=== PATIENT | male | born 1955 | race American Indian/Alaskan Native ===

== ENCOUNTER 2021-01-11 17:13 | Emergency (ER) | payer MEDICARE, OTHER ==
[2021-01-11 17:25] VITALS: BP 149/78
[2021-01-11] MEDS ORDERED: BUFFERED LIDOCAINE 10 ML SYRINGE SUBQ STA (17:25)
--- NOTE | 2021-01-11 17:58 | ED Physician Documentation ---
PD HPI UPPER EXT INJURY - Stated complaint Stated Complaint: LT KNUCKLE LAC - Chief complaint Chief Complaint: Laceration - History obtained from History obtained from: Patient - History of Present Illness Location: Left, Hand Type of injury: Laceration Where injury occurred: Home Timing - onset: Today Timing - duration: Minutes Timing - details: Abrupt onset, Still present Improved by: Rest, Immobilization Worsened by: Moving, Palpating Associated symptoms: No: Weakness, Numbness Contributing factors: No: Anticoagulated Similar symptoms before: Diagnosis (laceration) Recently seen: Not recently seen - Additonal information Additional information: Previously well 65-year-old retired male is visiting [facility] from [place] and he had a pocket knife in his hand which he had sharpened and yesterday. He was cutting a zip tie with it, when the knife slipped and he lacerated his left hand over the knuckle of the index finger. He has no functional deficit he is up-to-date on his tetanus he has taken both shots of Moderna and is here for repair. Review of Systems Constitutional: denies: Fever Eyes: denies: Decreased vision Ears: denies: Ear pain Nose: denies: Congestion Throat: denies: Sore throat Respiratory: denies: Cough GI: denies: Vomiting PD PAST MEDICAL HISTORY - Past Medical History Cardiovascular: Hypertension - Past Surgical History Cardiovascular: Coronary stent - Allergies Allergies/Adverse Reactions: Allergies Allergy/AdvReac Type Severity Reaction Status Date / Time Penicillins Allergy Unknown Verified 01/11/21 17:22 - Social History Does the pt smoke?: Yes Smoking Status: Current every day smoker Does the pt drink ETOH?: No Does the pt have substance abuse?: No - Immunizations Immunizations are current?: Yes PD ED PE NORMAL - Vitals Vital signs reviewed: Yes (hypertensive ) - General General: Alert and oriented X 3, No acute distress, Well developed/nourished - HEENT HEENT: Atraumatic, PERRL, EOMI - Respiratory Respiratory: No respiratory distress - Derm Derm: Normal color, Warm and dry, No rash - Extremities Extremities: No deformity, No edema, Other (Over the second metacarpal head on the left hand there is a flap laceration about 3-1/2 cm there is no foreign material under the wound and the distal neurovascular components are intact) - Neuro Neuro: Alert and oriented X 3, ems director 2-12 intact, No motor deficit, No sensory deficit, Normal speech Eye Opening: Spontaneous Motor: Obeys Commands Verbal: Oriented GCS Score: 15 - Psych Psych: Normal mood, Normal affect Results - Vitals Vitals: Vital Signs - 24 hr 01/11/21 17:22 Temperature 37.6 C Heart Rate 84 Respiratory 18 Rate Blood Pressure 149/78 H O2 Saturation 96 Oxygen O2 Source Room air Procedures - Laceration (location) left hand Wound type: Curved, Stellate, Flap, Clean Neurovascular status: Sensory intact, Motor intact, Vascular intact PD MEDICAL DECISION MAKING - ED course Complexity details: considered differential, d/w patient ED course: 65 y/o male with a hand laceration is sutured and tolerates this well. Departure - Departure Disposition: 01 Home, Self Care Clinical Impression: Hand laceration Qualifiers: Encounter type: initial encounter Foreign body presence: without foreign body Laterality: left Qualified Code(s): S61.412A - Laceration without foreign body of left hand, initial encounter Condition: Stable Instructions: ED Laceration Hand Follow-Up: Your, doctor [Other] Comments: Sutures will need to be removed in 10 days Discharge Date/Time: 01/11/21 18:32
== END 2021-01-11 18:32 | disposition home or self-care (01) ==
LOC: ED 17:13
DX: S61.412A Laceration without foreign body of left hand, initial encounter (principal); W26.0XXA Contact with knife, initial encounter; Y93.89 Activity, other specified; Y92.009 Unspecified place in unspecified non-institutional (private) residence as the place of occurrence of the external cause; I10 Essential (primary) hypertension; F17.200 Nicotine dependence, unspecified, uncomplicated
CPT/HCPCS: 12002; 99282